=== PATIENT | female | born 1965 | race Caucasian/White ===

== ENCOUNTER 2017-04-25 16:03 | Emergency (ER) | payer MEDICAID ==
[~2017-04-25] VITALS: Ht 160 cm; Wt 80.0 kg
[~2017-04-25 16:03] MED LIST: [UNRECOGNIZED DRUG - OTHER]
[2017-04-25 16:06] VITALS: Ht 160 cm; Wt 80.0 kg
[2017-04-25] MEDS ORDERED: ONDANSETRON (ODT) 4 MG TAB ODT STA (16:57)
[2017-04-25] MEDS ORDERED: HYDROCODONE/APAP (5/325) TAB PO ONE (17:00)
[2017-04-25] MEDS ORDERED: MECLIZINE 12.5 MG TAB PO ONE (17:00)
[2017-04-25 17:56] LABS: BASOPHILS % 0.3 % (0.0-2.0); EOSINOPHILS # 0.1 10^3/ul (0.0-0.5); EOSINOPHILS % 0.4 % (0.0-7.0); HEMATOCRIT 43.2 % (37.0-47.0); HEMOGLOBIN 14.1 g/dl (12.0-16.0); LYMPHOCYTES # 4.2 10^3/ul (0.8-2.9); MEAN CORPUSCULAR HEMOGLOBIN 27.3 pg (29.0-33.0); MEAN CORPUSCULAR HGB CONC 32.6 g/dl (32.0-37.0); MEAN CORPUSCULAR VOLUME 83.7 fl (82.0-101.0); MEAN PLATELET VOLUME 11.5 fl (7.4-10.4); MONOCYTE # 0.7 10^3/ul (0.3-0.9); MONOCYTES % 5.8 % (0.0-11.0); NEUTROPHIL # 7.6 10^3/ul (1.6-7.5); NEUTROPHILS % 60.2 % (39.0-77.0); PLATELET COUNT 215 10^3/UL (140-415); RED BLOOD COUNT 5.16 10^6/ul (4.20-5.40); RED CELL DISTRIBUTION WIDTH 13.9 % (11.5-14.5); WHITE BLOOD COUNT 12.6 10^3/ul (4.8-10.8)
[2017-04-25 18:25] LABS: ALBUMIN 4.2 g/dl (3.3-4.9); ALBUMIN/GLOBULIN RATIO 0.87; BILIRUBIN,INDIRECT 0.2 mg/dl (0-1.1); BILIRUBIN,TOTAL 0.2 mg/dl (0.2-1.3); CALCIUM 9.3 mg/dl (8.4-10.2); CREATININE 0.73 mg/dl (0.44-1.00); POTASSIUM 4.2 mmol/L (3.5-5.1)
[2017-04-25] MEDS ORDERED: ONDA4TAB14 PO (19:03)
[2017-04-25] MEDS ORDERED: MECL12.574 PO (19:03)
[2017-04-25 19:32] VITALS: BP 138/73; PULSE 58; RESP 17; TEMP 97.9
--- NOTE | 2017-04-29 14:37 | ERD ---
ER Documentation Chief Complaint Date/Time DATE: 04/29/17 TIME: 14:33 Chief Complaint N/V and head pain x yesterday HPI Patient is a 51-year-old female presenting to the emergency department with complaints of vertigo symptoms accompanied with nausea and vomiting which began yesterday. She also reports headache. She states her symptoms worsened when she moves her head rapidly. Vertigo lasts for 2-3 seconds and then spontaneously resolves. She is taking no medication for relief of symptoms. She denies history of similar symptoms in the past. ROS All systems reviewed and are negative except as per history of present illness. Medications Home Meds Active Scripts Meclizine Hcl* (Antivert*) 12.5 Mg Tab, 12.5 MG PO Q6H Y for DIZZINESS, #20 TAB Prov:LAUREN ORANTES PA-C 04/25/17 Ondansetron (Ondansetron Odt) 4 Mg Tab.rapdis, 4 MG PO Q6H Y for NAUSEA AND/OR VOMITING, #10 TAB Prov:LAUREN ORANTES PA-C 04/25/17 Reported Medications [Atb Natural] No Conflict Check 03/21/11 Allergies Allergies: Coded Allergies: Amoxicillin (Verified Allergy, Mild, 03/21/11) PMhx/Soc Medical and Surgical Hx: pt denies Medical Hx, pt denies Surgical Hx History of Surgery: No Anesthesia Reaction: No Hx Neurological Disorder: No Hx Respiratory Disorders: No Hx Cardiac Disorders: No Hx Psychiatric Problems: No Hx Miscellaneous Medical Probl: No Hx Alcohol Use: No Hx Substance Use: No Hx Tobacco Use: No Physical Exam Vitals Vital Signs Date Time Temp Pulse Resp B/P Pulse Ox O2 Delivery O2 Flow Rate FiO2 04/25/17 19:32 97.9 58 17 138/73 100 Room Air 04/25/17 16:06 97.8 76 19 132/63 98 Physical Exam Const: Nontoxic, well-appearing female in no acute distress. Head: Atraumatic Eyes: Normal Conjunctiva ENT: Normal External Ears, Nose and Mouth. Neck: Full range of motion..~ No meningismus. Resp: Clear to auscultation bilaterally Cardio: Regular rate and rhythm, no murmurs Skin: No petechiae or rashes Back: No midline or flank tenderness Ext: No cyanosis, or edema Neur: Awake and alert. EOMs show horizontal nystagmus. Negative Romberg sign. Psych: Normal Mood and Affect Result Diagram: 04/25/17 1745 04/25/17 1745 Results 24 hrs Laboratory Tests Test 04/25/17 17:45 White Blood Count 12.610^3/ul Red Blood Count 5.1610^6/ul Hemoglobin 14.1g/dl Hematocrit 43.2% Mean Corpuscular Volume 83.7fl Mean Corpuscular Hemoglobin 27.3pg Mean Corpuscular Hemoglobin Concent 32.6g/dl Red Cell Distribution Width 13.9% Platelet Count 69384^3/UL Mean Platelet Volume 11.5fl Neutrophils % 60.2% Lymphocytes % 33.0% Monocytes % 5.8% Eosinophils % 0.4% Basophils % 0.3% Nucleated Red Blood Cells % 0.0/100WBC Neutrophils # 7.610^3/ul Lymphocytes # 4.210^3/ul Monocytes # 0.710^3/ul Eosinophils # 0.110^3/ul Basophils # 0.010^3/ul Nucleated Red Blood Cells # 0.010^3/ul Sodium Level 139mmol/L Potassium Level 4.2mmol/L Chloride Level 101mmol/L Carbon Dioxide Level 31mmol/L Anion Gap 11 Blood Urea Nitrogen 9mg/dl Creatinine 0.73mg/dl Glucose Level 113mg/dl Calcium Level 9.3mg/dl Total Bilirubin 0.2mg/dl Direct Bilirubin 0.00mg/dl Indirect Bilirubin 0.2mg/dl Aspartate Amino Transf (AST/SGOT) 31IU/L Alanine Aminotransferase (ALT/SGPT) 78IU/L Alkaline Phosphatase 139IU/L Total Protein 9.0g/dl Albumin 4.2g/dl Globulin 4.80g/dl Albumin/Globulin Ratio 0.87 Current Medications Medications (Trade) Dose Ordered Sig/Danika Route PRN Reason Start Time Stop Time Status Last Admin Dose Admin Ondansetron HCl (Zofran Odt) 4 mg ONCE STAT ODT 04/25/17 16:57 04/25/17 16:58 DC 04/25/17 17:15 Acetaminophen/ Hydrocodone Bitart ([place] (5/325)) 1 tab ONCE ONCE PO 04/25/17 17:00 04/25/17 17:01 DC 04/25/17 17:16 Meclizine HCl (Antivert) 25 mg ONCE ONCE PO 04/25/17 17:00 04/25/17 17:01 DC 04/25/17 17:15 Procedures/MDM 51-year-old female presenting to the emergency department with complaints of vertigo. Workup in the department: CBC showed mild leukocytosis at 12.6, but not significant. No signs of anemia. Chemistry panel did show slightly elevated alkaline phosphatase at 139, but not significant. ALT was slightly elevated at 78. May be secondary to fatty liver. This finding was nonspecific. Patient was given Zofran, Wil[place], and Antivert in the department and she was feeling improved prior to discharge. Symptoms are likely secondary to benign positional vertigo, as the patient did have horizontal nystagmus and she was improved with medication. I did not feel that further workup was required at this time. The patient was suitable for outpatient management with a prescription for meclizine and Zofran. She may return immediately for any new or worsening symptoms. Follow-up with the primary care physician within 1- 2 days was advised. Low suspicion for intracranial hemorrhage, CVA, TIA, central vertigo, or other emergent conditions at time of discharge. I shared my medical decision making with the patient and she agreed. Departure Diagnosis: Primary Impression: Vertigo Additional Impression: Nausea and vomiting Vomiting type: unspecified Vomiting Intractability: non-intractable Qualified Code: R11.2 - Non-intractable vomiting with nausea, unspecified vomiting type Condition: Fair Patient Instructions: Inner Ear Problems: Causes of Dizziness (Vertigo), Vertigo, Unspecified Referrals: [facility] () Usted se garza hecho un examen mdico de control que le indica que no est en gerda condicin que requiera tratamiento urgente en el Departamento de Emergencia. Un estudio ms profundo y el tratamiento de dunn condicin pueden esperar sin ningn riesgo hasta que usted sea atendida/o en el consultorio de dunn mdico o gerda cl tiffanie. Es responsabilidad suya arreglar gerad justen para el seguimiento del sergo. MANEJO DE CONDICIONES NO URGENTES EN EL FUTURO 1) Si usted tiene un mdico de atencin primaria: Usted debera llamar a dunn mdico de atencin primaria antes de venir al departamento de emergencia. Despus de las horas de consultorio, dunn doctor o dunn asociado/a est disponible por telfono. El mdico o enfermero de bandar en el servicio telefnico puede asesorarle por amor medio para atender el problema, o sergo contrario se puede programar gerda justen. 2) Si usted no tiene un mdico de atencin primaria: Llame al mdico o clnica de referencia que aparece abajo yasmin las horas de consultorio para hacer gerda justen para que le vean. CLINICAS: [facility] [phone] [facility] [phone] [facility] [phone] [facility] [phone] [place] [id number] [phone] [facility] [phone] [address] Additional Instructions: No mas mejor en 2-3 hobbs, regresar. Mas peor en 24 horas, regresear rapidamente. Ir a doctor primario in 5-7 hobbs. Usar instrucciones cuando sarah medicamento. LAUREN ORANTES PA-C Apr 29, 2017 14:37
== END 2017-04-25 19:32 | disposition home or self-care (01) ==
LOC: FTE 16:03
DX: R42 Dizziness and giddiness (principal)
CPT/HCPCS: 80053; 85025; Z7502; Z7610; 99283